=== PATIENT | male | born 1945 | race Two or more races ===

== ENCOUNTER 2021-12-23 06:46 | Day surgery (SDC) | payer OTHER | END 2021-12-23 13:45 | disposition home or self-care (01) | LOC: AMB-ENDOS 06:46 | PROVIDERS: ATTEND Surgery | DX: C20 Malignant neoplasm of rectum (principal); D12.7 Benign neoplasm of rectosigmoid junction; D12.2 Benign neoplasm of ascending colon; D12.3 Benign neoplasm of transverse colon; Z20.822 Contact with and (suspected) exposure to COVID-19; K57.30 Diverticulosis of large intestine without perforation or abscess without bleeding; Z91.040 Latex allergy status ==

== ENCOUNTER 2022-02-11 12:15 | Inpatient (IN) | payer OTHER ==
[~2022-02-11] VITALS: Ht 165.1 cm; Wt 69.4 kg
[2022-02-11] MEDS ORDERED: VASOTEC10 MG PO (13:49)
[2022-02-11] MEDS ORDERED: ENALAPRIL MALEA10 MG PO (13:49)
[2022-02-11] MEDS ORDERED: RESTORIL30 M1 PO (13:50)
[2022-02-11] MEDS ORDERED: SINGULAIR 10MG10 MG PO (13:50)
[2022-02-11] MEDS ORDERED: ZOCOR20 MG PO (13:50)
[2022-02-11] MEDS ORDERED: ZINC50 M1 PO (13:51)
[2022-02-11] MEDS ORDERED: VITAMIN C100 MG PO (13:51)
[2022-02-11] MEDS ORDERED: B COMPLEX1 EACH PO (13:51)
[2022-03-14] MEDS ORDERED: GABAPENTIN300 M2 (15:48)
[2022-03-14] MEDS ORDERED: MONTELUKAST SOD10 MG (15:48)
[2022-03-14] MEDS ORDERED: AMLODIPINE BESY10 MG (15:48)
[2022-03-14] MEDS ORDERED: ST. JOSEPH ASPI81 M2 (15:48)
[2022-03-17] MEDS ORDERED: HYOSCYAMINE0.125 M1 SL (10:56)
[2022-03-17] MEDS ORDERED: INTESTINEX680 M1 PO (10:56)
[2022-03-17] MEDS ORDERED: OXYC1TAB9 PO (10:56)
== END 2022-03-17 14:37 | disposition home or self-care (01) | DRG 331 ==
LOC: SURG 02-14 12:15 → O/R 03-14 09:18 → SURH 03-14 09:18 → SURG 03-21 12:15
PROVIDERS: ADMIT Surgery; ATTEND Surgery
PROC: 0DBP4ZZ Excision of Rectum, Percutaneous Endoscopic Approach (ICD-10-PCS; 2022-03-14)
PROC: 07BC4ZZ Excision of Pelvis Lymphatic, Percutaneous Endoscopic Approach (ICD-10-PCS; 2022-03-14)
PROC: 0DJD8ZZ Inspection of Lower Intestinal Tract, Via Natural or Artificial Opening Endoscopic (ICD-10-PCS; 2022-03-14)
PROC: 0DTN4ZZ Resection of Sigmoid Colon, Percutaneous Endoscopic Approach (ICD-10-PCS; principal; 2022-03-14 12:45)
DX: C19 Malignant neoplasm of rectosigmoid junction (principal); D12.3 Benign neoplasm of transverse colon; I12.9 Hypertensive chronic kidney disease with stage 1 through stage 4 chronic kidney disease, or unspecified chronic kidney disease; N18.2 Chronic kidney disease, stage 2 (mild); Z20.822 Contact with and (suspected) exposure to COVID-19